=== PATIENT | male | born 1980 | race Caucasian/White ===

== ENCOUNTER → 2023-11-20 16:20 | Outpatient (CLI) | payer OTHER, SELFPAY ==
--- NOTE | 2023-11-20 | DI.MRI.S_ITS ---
PROCEDURE: MR SHOULDER LT WO CON INDICATIONS: Unspecified superficial injury of left shoulder, i TECHNIQUE: Noncontrast oblique coronal T2 fast spin echo with fat saturation, oblique sagittal T1 spin echo and T2 fast spin echo with fat saturation, axial T1 spin echo and T2 fast spin echo with fat saturation through the shoulder. COMPARISON: None. FINDINGS: Image quality: Excellent. Rotator cuff: There is low-grade partial-thickness tear of the supraspinatus, infraspinatus and subscapularis tendons with superimposed moderate involving the articular surface from the musculotendinous junction to the footprint. No tendon retraction. Sagittal images demonstrate no rotator cuff muscle atrophy. Bones and bursae: There are bone contusions in the humeral head. Question avulsion fracture of the greater tuberosity. No displaced fractures. There is moderate acromioclavicular and glenohumeral joint degeneration. Small glenohumeral joint effusion. Capsule and soft tissues: There is degenerative fraying of the superior labrum. There is mild tendinosis of the intra-articular segment of the long head of the biceps tendon which demonstrates normal location and morphology. The rotator interval appears normal, without fibrosis. The coracohumeral ligament is normal in thickness. There is mild edema in the deltoid muscle consistent with muscle strain. IMPRESSION: 1. Low-grade partial-thickness tear of the supraspinatus, infraspinatus and subscapularis tendons with moderate tendinosis. No tendon retraction or muscle atrophy. 2. Question avulsion fracture of the greater tuberosity. There is prominent bone marrow contusion involving the lateral aspect of humeral head. 3. Mild tendinosis of the intra-articular segment of the long head of the biceps tendon. 4. Moderate acromioclavicular and glenohumeral joint degeneration. 5. Degenerative fraying of the superior labrum. 6. Mild strain of the deltoid muscle. Dictated by: Yusuf Saenz M.D. on 11/23/2023 at 21:30 Approved by: Yusuf Saenz M.D. on 11/23/2023 at 21:43
== END ==
DX: S46.012A Strain of muscle(s) and tendon(s) of the rotator cuff of left shoulder, initial encounter (principal); S46.812A Strain of other muscles, fascia and tendons at shoulder and upper arm level, left arm, initial encounter; M19.012 Primary osteoarthritis, left shoulder; X58.XXXA Exposure to other specified factors, initial encounter
CPT/HCPCS: 73221